=== PATIENT | female | born 1945 | race Caucasian/White ===

== ENCOUNTER 2017-06-02 08:09 | Outpatient (CLI) | payer MEDICARE, OTHER ==
[2017-06-02 09:03] LABS: eGFR (African) > 60; eGFR (Non-African) > 60
== END 2017-06-02 08:10 ==
LOC: LAB 08:09
PROVIDERS: ATTEND Internal Medicine
DX: E78.00 Pure hypercholesterolemia, unspecified (principal); R53.83 Other fatigue
CPT/HCPCS: 36415; 80053; 80061; 86803

== ENCOUNTER 2018-06-01 07:46 | Outpatient (CLI) | payer MEDICARE, OTHER ==
[2018-06-01 08:55] LABS: eGFR (Non-African) > 60
== END 2018-06-01 07:51 | disposition home or self-care (01) ==
LOC: LAB 07:46
PROVIDERS: ATTEND Internal Medicine
DX: E78.00 Pure hypercholesterolemia, unspecified (principal); R73.9 Hyperglycemia, unspecified
CPT/HCPCS: 36415; 80053; 80061